=== PATIENT | male | born 1945 | race Caucasian/White ===

== ENCOUNTER 2017-07-24 21:22 | Emergency (ER) | payer OTHER ==
[~2017-07-24] VITALS: Ht 172.7 cm; Wt 74.8 kg
[2017-07-24 21:22] VITALS: BP_SYST 191
[2017-07-24] MEDS ORDERED: LIDOCAINE/EPI 1% 1:100000 20 ML VIAL IJ ONE (22:00)
[2017-07-24] MEDS ORDERED: BACITRACIN 1 GM OINT TP ONE (22:00)
[2017-07-24 22:21] VITALS: BP_SYST 184
== END 2017-07-24 23:07 | disposition home or self-care (01) ==
LOC: SED 21:22
DX: S01.412A Laceration without foreign body of left cheek and temporomandibular area, initial encounter (principal); S50.311A Abrasion of right elbow, initial encounter; E11.9 Type 2 diabetes mellitus without complications; I10 Essential (primary) hypertension; E78.5 Hyperlipidemia, unspecified; Y04.0XXA Assault by unarmed brawl or fight, initial encounter; Y93.89 Activity, other specified; Y92.89 Other specified places as the place of occurrence of the external cause; Y99.8 Other external cause status
CPT/HCPCS: 99283